=== PATIENT | male | born 1955 | race Two or more races ===

== ENCOUNTER 2021-01-13 17:42 | Emergency (ER) | payer MEDICAID ==
[~2021-01-13] VITALS: Ht 167.6 cm; Wt 83.2 kg
[2021-01-13] MEDS ORDERED: KETOROLAC TROMETH 60MG/2ML VIAL IM ONE (18:45)
[2021-01-13] MEDS ORDERED: diazePAM 5 MG TAB PO ONE (18:45)
[2021-01-13 21:59] LABS: Basophils # (auto) 0 10 ^3/uL (0-0.2); Basophils % (auto) 0.5 % (0.0-2.0); Eosinophils # (auto) 0 10 ^3/uL (0-0.8); Eosinophils % (auto) 0.4 % (0.0-7.0); Hemoglobin 14.4 g/dL (13.5-17.5); Lymphocytes % (auto) 11.7 % (10.0-50.0); Mean Corpuscular Hemoglobin 30.4 pg (28.0-32.0); Mean Corpuscular Hgb Conc. 34.2 g/dL (32.0-36.0); Mean Corpuscular Volume 88.8 fL (80.0-100.0); Monocytes # (auto) 0.4 10 ^3/uL (0-1.3); Monocytes % (auto) 4.8 % (0.0-12.0); Neutrophils # (auto) 6.8 10 ^3/uL (1.6-8.6); Neutrophils % (auto) 82.6 % (37.0-80.0); Red Blood Cells 4.73 10^6/uL (4.5-5.90); White Blood Cell 8.3 10^3/uL (4.4-10.8)
[2021-01-13 22:08] LABS: Albumin 3.9 g/dL (3.4-5.0); BUN/Creatinine Ratio 27.2; Calcium 9.7 mg/dL (8.5-10.1); Potassium 4.4 mmol/L (3.5-5.1)
[2021-01-13 22:11] LABS: Bilirubin, Total 0.6 mg/dL (0.2-1.0); Total Protein 7.7 g/dL (6.4-8.2)
[2021-01-13 23:34] LABS: Urine Bacteria NONE SEEN /hpf (None Seen); Urine Blood Negative /uL (Negative); Urine Mucus FEW (None Seen); Urine Specific Gravity 1.031 (1.001-1.035); Urine WBC 1 /hpf (0 - 3)
[2021-01-14] MEDS ORDERED: IBUP600T27 PO (00:24)
[2021-01-14] MEDS ORDERED: DIAZ10TA3 PO (00:24)
[2021-01-14 00:50] VITALS: BP 155/71
== END 2021-01-14 00:23 | disposition home or self-care (01) ==
LOC: ER 17:42
DX: M54.50 Low back pain, unspecified (principal); M25.551 Pain in right hip; R94.31 Abnormal electrocardiogram [ECG] [EKG]
CPT/HCPCS: 36415; 72100; 80053; 81001; 85025; 93005; 96372; 99285; J1885